=== PATIENT | female | born 1940 | race Caucasian/White ===

== ENCOUNTER 2017-11-03 13:13 | Emergency (ER) | payer MEDICARE ==
[~2017-11-03] VITALS: Ht 162.6 cm; Wt 79.4 kg
--- OUTSIDE RECORDS SUMMARY | 2017-11-03 13:16 | XMS REPORT | Clinical Summary ---
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 Disp. Refills Start End Date Status Date triamcinolone (KENALOG) Apply topically 2 (two) 45 g 0 06/03/2005/15 Active 0.5 % ointment times a day. 17 18 valproic acid 250 mg Take 1 tablet by mouth 90 each 0 06/03/20 Active capsule,delayed daily. 17 release(DR/EC) valproic acid (DEPAKENE) TAKE 1 CAPSULE BY MOUTH 90 capsule 0 Active 250 mg capsule DAILY 17 zolpidem CR (AMBIEN CR) Take 1 tablet (6.25 mg 90 tablet 0 10/22/19 11/22/19 Active 6.25 MG CR tablet total) by mouth nightly 18 18 as needed for sleep for up to 30 days. levothyroxine (SYNTHROID, Take 1 tablet (25 mcg 90 tablet 0 10/22/19 Active LEVOXYL) 25 mcg tablet total) by mouth every 18 morning. pravastatin (PRAVACHOL) Take 1 tablet (40 mg 90 tablet 0 10/22/19 Active 40 MG tablet total) by mouth daily. 18 venlafaxine XR Take 1 capsule (75 mg 90 capsule 0 10/22/19 Active (EFFEXOR-XR) 75 MG 24 hr total) by mouth daily. 18 capsule levothyroxine (SYNTHROID, Take 25 mcg by mouth 04/10/20 Discontin LEVOXYL) 25 mcg tablet every morning. 17 ued pravastatin (PRAVACHOL) Take 40 mg by mouth 04/10/20 Discontin 40 MG tablet daily. 17 ued venlafaxine 150 MG tablet Take by mouth. 02/28/20 Discontin extended release 24hr 24 17 ued hr tablet venlafaxine 37.5 MG Take 1 tablet (37.5 mg 30 tablet 0 02/28/20 Discontin tablet extended release total) by mouth daily. 17 17 ued 24hr 24 hr tablet buPROPion XL (WELLBUTRIN Take 1 tablet (150 mg 30 tablet 1 02/28/20 03/14/20 Discontin XL) 150 MG 24 hr tablet total) by mouth daily. 17 17 ued desonide (DESOWEN) 0.05 % Apply topically 2 (two) 30 g 0 03/14/20 Discontin ointment times a day for 30 days. 17 17 ued buPROPion XL (WELLBUTRIN Take 1 tablet (150 mg 30 tablet 2 03/14/20 04/10/20 Discontin XL) 150 MG 24 hr tablet total) by mouth daily. 17 17 ued desonide (DESOWEN) 0.05 % Apply topically 2 (two) 30 g 0 03/14/20 Discontin ointment times a day for 30 days. 17 17 ued venlafaxine XR (EFFEXOR Take 1 capsule (75 mg 30 capsule 1 03/19/20 03/19/20 Discontin XR) 75 MG 24 hr capsule total) by mouth daily. 17 17 ued venlafaxine XR (EFFEXOR Take 1 capsule (75 mg 30 capsule 1 03/19/20 04/10/20 Discontin XR) 75 MG 24 hr capsule total) by mouth daily. 17 17 ued hydrOXYzine (ATARAX) 25 Take 1 tablet (25 mg 30 tablet 0 03/19/20 Discontin MG tablet total) by mouth 3 (three) 17 17 ued times a day as needed for anxiety (sleep) for up to 30 days. promethazine (PHENERGAN) Take 1 tablet (50 mg 20 tablet 0 03/19/20 04/18/20 50 MG tablet total) by mouth every 6 17 17 (six) hours as needed for nausea or vomiting for up to 30 days. temazepam (RESTORIL) 15 Take 1 capsule (15 mg 30 capsule 2 04/10/20 05/10/20 mg capsule total) by mouth nightly 17 17 as needed for sleep for up to 30 days. venlafaxine XR (EFFEXOR Take 1 capsule (75 mg 90 capsule 0 04/10/20 05/15/20 Discontin XR) 75 MG 24 hr capsule total) by mouth daily. 17 17 ued levothyroxine (SYNTHROID, Take 1 tablet (25 mcg 90 tablet 1 04/10/20 06/03/20 Discontin LEVOXYL) 25 mcg tablet total) by mouth every 17 17 ued morning. pravastatin (PRAVACHOL) Take 1 tablet (40 mg 90 tablet 1 04/10/20 Discontin 40 MG tablet total) by mouth daily. 17 17 ued hydrOXYzine (ATARAX) 25 Take 1 tablet (25 mg 30 tablet 0 04/10/20 Discontin MG tablet total) by mouth 3 (three) 17 17 ued times a day as needed for anxiety (sleep) for up to 90 days. zolpidem (AMBIEN) 5 MG Take 1 tablet (5 mg 30 tablet 0 05/02/2003/14 tablet total) by mouth nightly 17 17 as needed for sleep for up to 30 days. venlafaxine XR Take 1 capsule by mouth 90 capsule 0 05/16/20 Discontin (EFFEXOR-XR) 75 MG 24 hr daily 17 17 ued capsule lamoTRIgine (LaMICtal) 25 Take 1 tablet (25 mg 30 tablet 1 06/03/20 06/03/20 Discontin MG tablet total) by mouth daily. 17 17 ued hydrOXYzine (ATARAX) 25 Take 1 tablet (25 mg 90 tablet 0 06/03/20 MG tablet total) by mouth 3 (three) 17 18 times a day as needed for anxiety (sleep) for up to 90 days. venlafaxine XR Take 1 capsule by mouth 90 capsule 0 06/03/20 Discontin (EFFEXOR-XR) 75 MG 24 hr daily 17 17 ued capsule zolpidem (AMBIEN) 5 MG Take 1 tablet (5 mg 30 tablet 0 06/17/20 Discontin tablet total) by mouth nightly 17 17 ued as needed for sleep for up to 30 days. levothyroxine (SYNTHROID, Take 1 tablet (25 mcg 90 tablet 0 06/17/20 08/05/20 Discontin LEVOXYL) 25 mcg tablet total) by mouth every 17 17 ued morning. pravastatin (PRAVACHOL) Take 1 tablet (40 mg 90 tablet 0 06/17/20 Discontin 40 MG tablet total) by mouth daily. 17 17 ued zolpidem (AMBIEN) 5 MG Take 1 tablet (5 mg 60 tablet 0 06/17/20 tablet total) by mouth nightly 17 17 as needed for sleep for up to 60 days. amoxicillin-pot Take 1 tablet by mouth 2 14 tablet 0 07/24/20 clavulanate (AUGMENTIN) (two) times a day for 7 17 17 875-125 mg per tablet days. venlafaxine XR TAKE 1 CAPSULE BY MOUTH 90 capsule 1 07/31/20 Discontin (EFFEXOR-XR) 75 MG 24 hr DAILY 17 18 ued capsule levothyroxine (SYNTHROID, TAKE 1 TABLET BY MOUTH 90 tablet 0 08/05/20 10/22/19 Discontin LEVOXYL) 25 mcg tablet EVERY MORNING 17 18 ued pravastatin (PRAVACHOL) TAKE 1 TABLET BY MOUTH 90 tablet 0 08/05/20 10/22/19 Discontin 40 MG tablet DAILY 17 18 ued Hospital, Clinic, or Ordered Dose Route Frequency Start End Date Status Other Facility Date Administered Medication promethazine (PHENERGAN) 25 mg IM Once 03/19/20 03/19/20 Ended intraMUSCULAR injection 17 17 25 mgIndications: Nausea Active Problems Problem Noted Date Medication management 10/22/2017 Immunization due 06/03/2017 Mood disorder 06/03/2017 Rash and nonspecific skin eruption 06/03/2017 Skin lesion of face 04/10/2017 Insomnia 04/10/2017 Side effects of treatment 03/19/2017 Overview: Secondary to wellbutrin. Also noticed worsening of she will stop this and restart Venlafaxine low dose - 75mg. Follow in 1 month. If symptoms worsen go to ED. Grief at loss of child, prolonged 02/27/2017 Depression 02/27/2017 Hyperlipidemia LDL goal <130 02/27/2017 Hypothyroidism 02/27/2017 Encounters Date Type Specialty Care Team Description 11/02/2017 Refill Internal Medicine Francis De Oliveira MD 10/22/2017 Office Visit Internal Medicine Francis De Oliveira, Mood disorder (Primary MD Dx); Other depression; Hyperlipidemia LDL goal <130; Hypothyroidism, unspecified type; Vision disturbance; Medication management; Primary insomnia 10/22/2017 Orders Only Internal Medicine Soumya Mireles MA Visual disturbance (Primary Dx) 10/21/2017 Telephone Internal Medicine Francis De Oliveira MD 08/05/2017 Refill Internal Medicine Francis De Oliveira MD 07/31/2017 Refill Internal Medicine Francis De Oliveira MD 07/27/2017 Refill Internal Medicine Francis De Oliveira MD 07/24/2017 Office Visit Internal Medicine Francis De Oliveira, Paronychia of thumb, left MD (Primary Dx) 07/01/2017 Refill Internal Medicine Francis De Oliveira MD 06/17/2017 Office Visit Internal Medicine Francis De Oliveira, Other depression (Primary MD Dx); Mood disorder; Insomnia, unspecified type 06/17/2017 Orders Only Internal Medicine Soumya Mireles MA 06/17/2017 Orders Only Internal Medicine Francis De Oliveira MD 06/14/2017 Telephone Internal Medicine Francis De Oliveira MD 06/03/2017 Office Visit Internal Medicine Francis De Oliveira, Mood disorder (Primary MD Dx); Other depression; Immunization due; Insomnia, unspecified type; Rash and nonspecific skin eruption 05/15/2017 Refill Internal Francis Dunham MD 05/02/2017 Orders Only Internal Medicine Soumya Mireles MA 05/02/2017 Telephone Internal Medicine Francis De Oliveira MD 04/10/2017 Office Visit Internal Medicine Francis De Oliveira, Other depression (Primary MD Dx); Grief at loss of child, prolonged; Insomnia, unspecified type; Skin lesion of face 04/09/2017 Telephone Internal Medicine Francis De Oliveira MD 03/19/2017 Office Visit Internal Medicine Francis De Oliveira, Other depression (Primary MD Dx); Side effects of treatment, initial encounter; Nausea 03/14/2017 Office Visit Internal Medicine Francis De Oliveira, Other depression (Primary MD Dx); Rash 02/27/2017 Office Visit Internal Medicine Francis De Oliveira Hypothyroidism, MD unspecified type (Primary Dx); Hyperlipidemia LDL goal <130; Other depression; Grief at loss of child, prolonged after 11/02/2016 Immunizations Name Dates Previously Given Next Due FLUZONE HIGH-DOSE PF 06/03/2017 Family History Relation Name Status Comments Father Mother Social History Tobacco Use Types Packs/Day Years Used Date Never Smoker Alcohol Use Drinks/Week oz/Week Comments No Sex Assigned at Date Recorded Not on file Last Filed Vital Signs Vital Sign Reading Time Taken Blood Pressure 109/71 10/22/2017 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 Pulse 75 10/22/2017 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 Temperature 36.7 C (98 F) 10/22/2017 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 Respiratory Rate - - Oxygen Saturation 94% 10/22/2017 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 Inhaled Oxygen - - Concentration Weight 90.3 kg (199 lb) 10/22/2017 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 Height 165.1 cm (5' 5") 10/22/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 Component Value Ref Range WBC 5.3 3.4 - 10.8 x10E3/uL RBC 4.27 3.77 - 5.28 x10E6/uL HGB 13.3 11.1 - 15.9 g/dL HCT 39.1 34.0 - 46.6 % MCV 92 79 - 97 fL MCH 31.1 26.6 - 33.0 pg MCHC 34.0 31.5 - 35.7 g/dL RDW 13.2 12.3 - 15.4 % Platelet count 274 150 - 379 x10E3/uL Neutrophils 49 Not Estab. % Lymphocytes 37 Not Estab. % Monocytes 9 Not Estab. % Eosinophils 4 Not Estab. % Basophils 1 Not Estab. % Neutrophils, absolute 2.6 1.4 - 7.0 x10E3/uL Lymphocytes, absolute 2.0 0.7 - 3.1 x10E3/uL Monocytes, absolute 0.5 0.1 - 0.9 x10E3/uL Eosinophils, absolute 0.2 0.0 - 0.4 x10E3/uL Basophils, absolute 0.1 0.0 - 0.2 x10E3/uL Immature granulocytes 0 Not Estab. % Immature grans (abs) 0.0 0.0 - 0.1 x10E3/uL Specimen Performing Laboratory [facility] Narrative Performed at:[address] [place] [address] Pharmacology Teacher: Uriel Louis MD, Phone:[phone] * T3, free (10/23/2017 12:08 PM) Component Value Ref Range T3, free 2.5 2.0 - 4.4 pg/mL Specimen Performing Laboratory Blood [facility] Narrative Performed at:[address] [place], [place] [id number] Pharmacology Teacher: Uriel Louis MD, Phone:[phone] * Thyroid stimulating hormone (10/23/2017 12:08 PM) Only the most recent of 2 results within the time period is included. Component Value Ref Range TSH 4.370 0.450 - 4.500 uIU/mL Specimen Performing Laboratory Blood [facility] Narrative Performed at:[address] [place], [place] [id number] Pharmacology Teacher: Uriel Louis MD, Phone:[phone] * T4, free (10/23/2017 12:08 PM) Only the most recent of 2 results within the time period is included. Component Value Ref Range T4, free 1.00 0.82 - 1.77 ng/dL Specimen Performing Laboratory Blood [facility] Narrative Performed at:[address] [place], [place] [id number] Pharmacology Teacher: Uriel Louis MD, Phone:[phone] * Lipid panel (10/23/2017 12:08 PM) Only the most recent of 2 results within the time period is included. Component Value Ref Range Cholesterol 207 (H) 100 - 199 mg/dL Triglycerides 113 0 - 149 mg/dL HDL cholesterol 82 >39 mg/dL VLDL cholesterol norah 23 5 - 40 mg/dL LDL cholesterol 102 (H) 0 - 99 mg/dL calculated Non-HDL cholesterol 125 0 - 129 mg/dL Specimen Performing Laboratory [facility] Narrative Performed at: [id number] Pharmacology Teacher: Uriel Louis MD, Phone:[phone] * Comprehensive metabolic panel (10/23/2017 12:08 PM) Only the most recent of 2 results within the time period is included. Component Value Ref Range Glucose 94 65 - 99 mg/dL BUN, whole blood 9 8 - 27 mg/dL Creatinine 0.81 0.57 - 1.00 mg/dL EGFR Non-Afr. Mexican 70 >59 mL/min/1.73 EGFR 80 >59 mL/min/1.73 BUN/creatinine ratio 11 (L) 12 - 28 Sodium 143 134 - 144 mmol/L Potassium 4.6 3.5 - 5.2 mmol/L Chloride 102 96 - 106 mmol/L CO2 23 18 - 29 mmol/L Calcium 9.6 8.7 - 10.3 mg/dL Protein 6.6 6.0 - 8.5 g/dL Albumin, S 4.2 3.5 - 4.8 g/dL Globulin, total 2.4 1.5 - 4.5 g/dL Albumin/globulin ratio 1.8 1.2 - 2.2 Total bilirubin 0.3 0.0 - 1.2 mg/dL Alkaline phosphatase 57 39 - 117 IU/L AST 18 0 - 40 IU/L ALT 13 0 - 32 IU/L Specimen Performing Laboratory [facility] Narrative Performed at: [id number] Pharmacology Teacher: Uriel Louis MD, Phone:[phone] after 11/02/2016 Insurance Payer Benefit Subscriber ID Type Phone Address Plan / Group [facility] MEDICARE AARP xxxxxxxxx [place] [address]
[2017-11-03] MEDS ORDERED: ZOFRAN ODT4 MG SL (13:29)
[2017-11-03] MEDS ORDERED: ONDANSETRON HCL 4 MG ORAL DISINTEGRATING TAB SL ONE (13:30)
[2017-11-03] MEDS ORDERED: SIMETHICONE80 MG PO (13:31)
[2017-11-03 14:10] VITALS: BP 150/70
== END 2017-11-03 14:12 | disposition home or self-care (01) ==
LOC: FSED 13:13
DX: R11.2 Nausea with vomiting, unspecified (principal); R19.7 Diarrhea, unspecified; A08.4 Viral intestinal infection, unspecified; A09 Infectious gastroenteritis and colitis, unspecified
CPT/HCPCS: 99283